=== PATIENT | female | born 1960 | race Caucasian/White ===

== ENCOUNTER 2022-08-19 14:03 | Outpatient (CLI) | payer BC | END 2022-08-19 23:59 | disposition home or self-care (01) | LOC: CARD DIAG 14:03 | PROVIDERS: ATTEND Internal Medicine Interventional Cardiology | DX: I08.0 Rheumatic disorders of both mitral and aortic valves (principal); R06.2 Wheezing; Z82.49 Family history of ischemic heart disease and other diseases of the circulatory system | CPT/HCPCS: 93306 ==